=== PATIENT | female | born 1990 | race Caucasian/White ===

== ENCOUNTER 2023-09-10 10:16 | Inpatient (IN) | payer BC, SELFPAY ==
[2023-09-10] VITALS (109 sets, daily range): BP systolic 104–156; BP diastolic 51–128; PULSE 69–123; RESP 18; TEMP 36.4–38; O2SAT 96–100; BMI 33.0
[2023-09-10 10:56] LABS: Basophils Percent Auto 0.2 % (0.2-1.2); Eosinophils Percent Auto 0.1 % (0-4.4); Hematocrit 37.9 % (37.0-47.0); Hemoglobin 12.7 g/dL (12.0-15.0); Immature Granulocyte Absolute 0.14 K/mm3 (0.00-0.031); Lymphocytes Absolute Auto 1.69 K/mm3 (0.9-3.2); Lymphocytes Percent Auto 12.4 % (18.3-44.2); Mean Corpuscular HGB Conc 33.5 g/dl (32-36); Mean Corpuscular Hemoglobin 30.5 pg (26-34); Mean Corpuscular Volume 91.1 fl (80-100); Mean Platelet Volume 10.5 fl (7.4-10.4); Monocytes Absolute Auto 0.7 K/mm3 (0.1-0.6); Monocytes Percent Auto 5.1 % (2.6-8.5); Neutrophils Percent Auto 81.2 % (45.5-73.1); Platelet Count Result 192 k/mm3 (150-375); Red Blood Count 4.16 M/mm3 (4.2-5.4); Red Cell Distribution Width 13.8 % (11.5-14.5); White Blood Count 13.6 K/mm3 (4.5-10.0)
[2023-09-10] MEDS: LACTATED RINGERS 1,000 ML 125 ML IV CONT ×2 (11:00→11:53)
--- NOTE | 2023-09-10 11:01 | LDADM ---
This patient, Jennifer Morales, was admitted to Labor/Delivery/Recovery 105 on 09/10/23 at 10:16. Plans for labor, pain management and were discussed with patient. Patient/family oriented to hospital policies and general routines including ID bracelet, bed and alarms, visiting hours, pain management, procedures, bathroom and other care routines, personal items, smoking policy, room service/diet and guest tray routines, infant security routines, and visiting hours. Patient/Family are encouraged to report perceived risks to care and to ask questions if they do not understand what they are told or what they should do. See OBIX for further documentation.
--- NOTE | 2023-09-10 11:11 | WPDOBADMIT ---
Obstetrics - Admit Note Admission Note: record reviewed. No pertinent additions to the history and/or any subsequent changes in the physical findings that are not consistent with the expected course of the were found. Additions to the history and/or subsequent changes in the physical findings follow. Admit for labor, rn exam 7-8 cm/90/-1 station, GBS negative, FHR category 1
[2023-09-10 11:46] LABS: HIV 1/2 Ab P24 Ag Result Negative (Negative)
--- NOTE | 2023-09-10 12:06 | WPDANESEPP ---
Anes - Eval Pre Procedure Procedure: labor pain management Date/Time: 09/10/23 12:06 Surgeon: Paul Preop Diagnosis: Pain during labor Pre Op Diagnosis: Labor Patient Data Age: 33 Gender: F Height: 1.57 m Weight: 82 kg Last Vital Signs Pulse 81 09/10/23 12:03 BP 122/69 09/10/23 12:03 Pulse Ox 99 09/10/23 12:05 O2 Del Method Room Air 09/10/23 11:00 Allergies Allergy/AdvReac Type Severity Reaction Status Date / Time No Known Allergies Allergy Verified 08/12/23 15:23 Home Medications Medication Instructions Recorded Confirmed Type vit no.95-ferrous 1 tablet PO DAILY 09/10/23 09/10/23 History fumarate 28 mg-folic acid 800 mcg tablet () Laboratory Tests 09/10/23 10:51 WBC 13.6 H K/mm3 (4.5-10.0) RBC 4.16 L M/mm3 (4.2-5.4) Hgb 12.7 g/dL (12.0-15.0) Hct 37.9 % (37.0-47.0) MCV 91.1 fl (80-100) MCH 30.5 pg (26-34) MCHC 33.5 g/dl (32-36) RDW 13.8 % (11.5-14.5) Plt Count 192 k/mm3 (150-375) MPV 10.5 H fl (7.4-10.4) Immature Gran % (Auto) 1.0 H % (0-0.5) Neut % (Auto) 81.2 H % (45.5-73.1) Lymph % (Auto) 12.4 L % (18.3-44.2) [place] % (Auto) 5.1 % (2.6-8.5) Eos % (Auto) 0.1 % (0-4.4) Baso % (Auto) 0.2 % (0.2-1.2) Lymph # (Auto) 1.69 K/mm3 (0.9-3.2) [place] # (Auto) 0.7 H K/mm3 (0.1-0.6) Eos # (Auto) 0.0 K/mm3 (0-0.3) Baso # (Auto) 0.0 K/mm3 (0.0-0.1) Abs Immat Gran (auto) 0.14 H K/mm3 (0.00-0.031) Absolute Neuts (auto) 11.0 H K/mm3 (1.3-6.7) Absolute Nucleated RBC 0.000 K/mm3 (0.0-0.012) Nucleated RBC % 0.0 % (0.0-0.2) RPR Pending HIV 1&2 Ab/P24 Ag 4thGn Negative (Negative) Blood Type O Positive Antibody Screen Negative Patient hx anesthesia problems: none Family hx anesthesia problems: none Results Review: All pre-operative results and documents have been reviewed as part of the pre-operative evaluation. [facility] Family History Family History Grandparent Lung cancer Father Non-Hodgkin lymphoma Heart attack FH: cholecystectomy Grandparent Cancer Social History Social History Smoking status: Never smoker Substance use: never Do You Feel Safe in your Home?: Yes Lack of Transportation: No Lack of Food: Never True Current Housing: I Have Housing Concerned About Future Housing: No Difficulty Paying Gas/Electric Bills: No Difficulty Paying for Meds: No Currently Unemployed: No Education: Don't Know Difficulty w/ Childcare or Family Care: No Spiritual care concerns: No Exam Day of Procedure 09/10/23 12:06
--- NOTE | 2023-09-10 12:12 | PM.OBPNLAB ---
Pain Control Date/time seen: 09/10/23 12:12 Comments: ADRIANA [id number] station, AROM, moderate amount of clear fluid, with bloody show, anticipate vaginal delivery
[2023-09-10] MEDS: OXYTOCIN 30 UNITS/NS 500 ML 30 UNITS/500 ML BAG IV CONT (14:19)
[2023-09-10] MEDS: ONDANSETRON INJ 4 MG/2 ML VIAL IV PUSH (17:04)
[2023-09-10] MEDS: LIDOCAINE HCL 1% LOCAL INJ 20 ML VIAL (17:41)
[2023-09-10] MEDS: OXYTOCIN 30 UNITS/NS 500 ML 30 UNITS/500 ML BAG 125 UNITS IV CONT (17:42)
--- NOTE | 2023-09-10 17:42 | PM.OBPRVD ---
OB - Vaginal Delivery Note Procedure Delivery date: 09/10/23 Induction method: AROM and Per Pitocin Protocol Delivery monitor: External FHT and External Uterine Route of delivery: Episiotomy description: None Laceration Description: Periurethral (right) Delivery repair: vicryl Specimen: No Quantitative Blood Loss (ml): 100 Anesthesia type: Epidural Disposition: Floor Complications: No immediate complications [place] Baby Date of : 09/10/23 Time of : 17:25 Weeks of gestation at delivery: 39 gender: Female presentation: vertex position: Left Occiput Anterior Placenta delivery description: Spontaneous Cord Vessel Description: 3 Vessels, Clamped/Cut and Delayed Cord Clamping score one minute: 8 score five minutes: 9 Narrative: mother and baby skin to skin in stable condition
[2023-09-10] MEDS: BENZOCAINE 20% AER SPR (*SP) 56 GM CAN 1 SPRAY TOPICAL (18:26)
[2023-09-10] MEDS: WITCH HAZEL 40 PADS 1 PAD TOPICAL (18:26)
[2023-09-10] MEDS: IBUPROFEN 600 MG TABLET PO (18:27)
[2023-09-10] MEDS: LANOLIN (LANSINOH) 7.5 GM CREAM 1 APPLIC TOPICAL (18:27)
--- NOTE | 2023-09-10 19:38 | WPDANESEPP ---
Anes - Eval Pre Procedure Procedure: Labor epidural Date/Time: 09/10/23 19:38 Surgeon: Paul Preop Diagnosis: Abdominal pain with contractions Pre Op Diagnosis: Labor Patient Data Age: 33 Gender: F Height: 1.57 m Weight: 82 kg Last Vital Signs Temp 100.4 F H 09/10/23 18:27 Pulse 99 09/10/23 19:30 BP 110/67 09/10/23 19:30 Pulse Ox 98 09/10/23 16:45 O2 Del Method Room Air 09/10/23 11:00 Allergies Allergy/AdvReac Type Severity Reaction Status Date / Time No Known Allergies Allergy Verified 08/12/23 15:23 Home Medications Medication Instructions Recorded Confirmed Type vit no.95-ferrous 1 tablet PO DAILY 09/10/23 09/10/23 History fumarate 28 mg-folic acid 800 mcg tablet () Laboratory Tests 09/10/23 10:51 WBC 13.6 H K/mm3 (4.5-10.0) RBC 4.16 L M/mm3 (4.2-5.4) Hgb 12.7 g/dL (12.0-15.0) Hct 37.9 % (37.0-47.0) MCV 91.1 fl (80-100) MCH 30.5 pg (26-34) MCHC 33.5 g/dl (32-36) RDW 13.8 % (11.5-14.5) Plt Count 192 k/mm3 (150-375) MPV 10.5 H fl (7.4-10.4) Immature Gran % (Auto) 1.0 H % (0-0.5) Neut % (Auto) 81.2 H % (45.5-73.1) Lymph % (Auto) 12.4 L % (18.3-44.2) [place] % (Auto) 5.1 % (2.6-8.5) Eos % (Auto) 0.1 % (0-4.4) Baso % (Auto) 0.2 % (0.2-1.2) Lymph # (Auto) 1.69 K/mm3 (0.9-3.2) [place] # (Auto) 0.7 H K/mm3 (0.1-0.6) Eos # (Auto) 0.0 K/mm3 (0-0.3) Baso # (Auto) 0.0 K/mm3 (0.0-0.1) Abs Immat Gran (auto) 0.14 H K/mm3 (0.00-0.031) Absolute Neuts (auto) 11.0 H K/mm3 (1.3-6.7) Absolute Nucleated RBC 0.000 K/mm3 (0.0-0.012) Nucleated RBC % 0.0 % (0.0-0.2) RPR Pending HIV 1&2 Ab/P24 Ag 4thGn Negative (Negative) Blood Type O Positive Antibody Screen Negative : gestational age HCG: positive Patient hx anesthesia problems: none Family hx anesthesia problems: none Results Review: All pre-operative results and documents have been reviewed as part of the pre-operative evaluation. [facility] Family History Family History Grandparent Lung cancer Father Non-Hodgkin lymphoma Heart attack FH: cholecystectomy Grandparent Cancer Social History Social History Smoking status: Never smoker Substance use: never Do You Feel Safe in your Home?: Yes Lack of Transportation: No Lack of Food: Never True Current Housing: I Have Housing Concerned About Future Housing: No Difficulty Paying Gas/Electric Bills: No Difficulty Paying for Meds: No Currently Unemployed: No Education: Don't Know Difficulty w/ Childcare or Family Care: No Spiritual care concerns: No Exam Day of Procedure 09/10/23 19:38
--- NOTE | 2023-09-10 20:28 | PC.NURSE ---
Patient transferred to post room #292 via ( W/C ). Support person present. Oriented to unit, room, information board, rooming in, admission packet and security measures. Patient verbalizes understanding.
[2023-09-11 00:26] VITALS: BP 100/67; PULSE 79; RESP 18; TEMP 36.4; O2SAT 98
[2023-09-11] MEDS: IBUPROFEN 600 MG TABLET PO ×2 (05:36→19:02)
[2023-09-11 06:11] LABS: Hematocrit 34.4 % (37.0-47.0); Hemoglobin 11.2 g/dL (12.0-15.0)
--- NOTE | 2023-09-11 06:57 | P.PNOB_ITS ---
OB - PN: Subj Subjective Date/time seen: 09/11/23 06:57 Interval history: pp day 1 doing well OB - PN: Obj Data Labs 09/11/23 05:55 Labs: Laboratory Results - last 24 hr 09/10/23 09/11/23 10:51 05:55 WBC 13.6 H RBC 4.16 L Hgb 12.7 11.2 L Hct 37.9 34.4 L MCV 91.1 MCH 30.5 MCHC 33.5 RDW 13.8 Plt Count 192 MPV 10.5 H Immature Gran % (Auto) 1.0 H Neut % (Auto) 81.2 H Lymph % (Auto) 12.4 L [place] % (Auto) 5.1 Eos % (Auto) 0.1 Baso % (Auto) 0.2 Lymph # (Auto) 1.69 [place] # (Auto) 0.7 H Eos # (Auto) 0.0 Baso # (Auto) 0.0 Abs Immat Gran (auto) 0.14 H Absolute Neuts (auto) 11.0 H Absolute Nucleated RBC 0.000 Nucleated RBC % 0.0 HIV 1&2 Ab/P24 Ag 4thGn Negative Blood Type O Positive Antibody Screen Negative OB - PN A/P Plan day: 1 Plan: routine care Time Spent With Patient Time: Total time spent is greater than 50% in coordination of care (as documented) at patient's floor/unit and/or counseling patient: Review of Systems Review of Systems: All systems reviewed & are unremarkable except as noted in HPI and below Exam Const: General: cooperative and healthy appearing Chest: Chest palpation & inspection: normal inspection of the chest Resp: Effort & Inspection: normal respiratory effort Cardio: Rate: regular rate Rhythm: regular rhythm Skin: General skin exam: normal color Neuro: General: patient oriented x3
[2023-09-11 08:10] VITALS: BP 103/68; PULSE 74; RESP 16; TEMP 36.4
[2023-09-11] MEDS: MULTIVIT/MIN/PREN/FOL AC/IRON TABLET 1 TAB PO (08:13)
[2023-09-11 08:20] LABS: Rapid Plasma Reagin Non-Reactive (NonReactive)
[2023-09-11 19:00] VITALS: BP 104/66; PULSE 71; RESP 16; TEMP 37.2
[2023-09-11] MEDS: ACETAMINOPHEN 325 MG TABLET 650 MG PO (23:45)
[2023-09-12] MEDS: IBUPROFEN 600 MG TABLET PO (05:00)
[2023-09-12 07:55] VITALS: BP 98/60; PULSE 70; RESP 16; TEMP 36.6; O2SAT 99
[2023-09-12] MEDS: ACETAMINOPHEN 325 MG TABLET 650 MG PO (09:05)
[2023-09-12] MEDS: MULTIVIT/MIN/PREN/FOL AC/IRON TABLET 1 TAB PO (09:05)
--- NOTE | 2023-09-12 09:10 | PC.NURSE ---
Patient instructed on viewing the discharge video Mother & Baby Care, The First Two Weeks online. Patient was given the opportunity and encouraged to ask questions. Patient verbalized understanding of information shared and has been given the mother/baby guide for home reference.
--- NOTE | 2023-09-12 09:38 | PM.OBPNVD ---
OB - PN: Subj Subjective Date/time seen: 09/12/23 09:38 Interval history: pp day 1 doing well Patient comments: no complaints, pain well controlled and tolerating diet OB - PN: Obj Data Labs 09/11/23 05:55 OB - PN A/P Plan day: 2 Plan: routine care and discharge home Time Spent With Patient Time: Total time spent is greater than 50% in coordination of care (as documented) at patient's floor/unit and/or counseling patient: Exam Const: General: comfortable and no acute distress Resp: Effort & Inspection: normal respiratory effort Auscultation: no rales, no rhonchi and no wheezes Cardio: Rate: regular rate Heart sounds: no click, no murmurs and no rubs GI: GI Palp: Yes Soft to palpation and No Tenderness to palpation present (GI) Auscultation: normal bowel sounds Extrem: General: normal to inspection, no pedal edema and no calf tenderness
--- NOTE | 2023-09-12 10:56 | PM.OBDSVD ---
DS: Admitting Diagnosis Discharge Date September 12, 2023 Admitting Diagnosis term OB - DS: Summary OB Procedures : None OB Procedures Intrapartum: Spontaneous Vag Delivery OB Procedures: : None Peripartum Data Laceration Description: Periurethral (right) Episiotomy description: None Time Spent with Patient Time attestation: Total time spent providing and/or coordinating discharge services: Discharge Plan Discharge Discharging Clinician: Humberto Miller Patient Disposition: Home, Self-Care Activity: pelvic rest Diet: regular Patient Instructions: Antibiotic Form Stand Alone Forms: General Discharge Information Follow-up/Referrals: Humberto Miller MD [Physician] - Discharge Medications: No Action PNV cmb#95-ferrous fumarate-FA [] 28 mg iron- 800 mcg Tablet 1 tablet PO DAILY Date of admission: 09/10/23 10:16 Primary Care Provider: Alcira Gillette Admitting Provider: Humberto Miller Attending physician on admission: Humberto Miller Condition: Stable
--- NOTE | 2023-09-12 13:29 | PC.NURSE ---
Addendum entered by Estella Benítez RN 09/12/23 13:36: We reviewed that there's to not be pain with or pumping and if so, then contact an IBCLC or MD. Educational resources provided along with demonstrating with teaching tools and handouts to help with learning to attach her to her breast if she decides to breastfeed again once she goes home. Parents voiced understanding of this information. Original Note: [id number] Introductions were made and consulted with mother concerning service needs and she shared her combination feeding with attempting to breastfeed, pumping and supplementing. Mother is feeding appropriately for growth of infant and understands stimulating infant to eat if needed. has had appropriate feedings in the last 24 hours meets the outcomes for weight, output, blood sugar and jaundice at this time. Reviewed consistent pumping at least 8 times in 24 hours with 1-2 times at night to protect the milk supply if is receiving a bottle. Reinforced understanding of milk production, transition of milk, signs of adequate intake, prevention/relief of engorgement, plugged ducts, mastitis, responsive feeding watching for the feeding cues, feeding infant on demand about every 1-3 hours after the start of the last feeding, community resources, and when to call a provider or services using the resource of the feeding sheet along with the mom and baby guide and use call light to ask for RN with RN LC name on the communication board. Mother voiced understanding of the information shared, is confident to continue feeding her infant at home, when to call for assistance, denies any additional assistance or education at this time but will call if she changes her mind.
[2023-09-13 09:46] VITALS: BP 104/68; PULSE 66; RESP 18; TEMP 36.8; O2SAT 99
== END 2023-09-12 12:10 | disposition home or self-care (01) | DRG 807 ==
LOC: ANHLDR 10:36 → ANHOB2 20:36
PROVIDERS: Admitting Provider Obstetrics & Gynecology; PCP Advanced Practice Midwife; Visit Provider Obstetrics & Gynecology
DX: O71.82 Other specified trauma to perineum and vulva (principal); Z37.0 Single live birth; Z3A.39 39 weeks gestation of pregnancy
CPT/HCPCS: 36415; 85014; 85018; 85025; 86592; 86703; 86850; 86900; 86901; A9270; G0432; J2405; J2590; J2795; J7120